=== PATIENT | female | born 1940 | race Caucasian/White ===

== ENCOUNTER 2019-12-28 07:51 | Inpatient (IN) | payer MEDICARE, BC ==
[~2019-12-28 07:51] MED LIST: Bisacodyl 5 MG Tab PO PRN; Ketorolac 15 MG/ML SDV IVPUSH PRN; Lactated Ringers 1,000 ML IV SCH; Lidocaine 1%/Sod Bicarbonate in NS 8.4% 1 ML Syringe IDERM PRN; Magnesium Hydroxide 400 MG/5 ML Susp 30 ML Cup PO PRN; Morphine 2 MG/ML Syringe IVPUSH PRN; Naloxone 0.4 MG/ML SDV IVPUSH PRN; Ondansetron 4 MG/2 ML SDV IVPUSH PRN; Sennosides 8.6 MG Tab PO PRN; Sodium Chloride 0.9% 10 ML Syringe FLUSH PRN
--- NOTE | 2019-12-28 08:09 | PCM.CONS ---
H&P History of Present Illness - General Date of Service: 12/28/19 Admit Problem/Dx: Admission Diagnosis/Problem Admission Diagnosis/Problem Osteoarthritis of hip Source of Information: Patient, Old Records, Provider, RN, RN Notes Reviewed History Limitations: Reports: No Limitations - History of Present Illness Initial Comments - Free Text/Narative: Jihan Caldwell is a 79 yo female patient of Dr. Yousif who is post-operative day 0 of right ASHLYN. Hospital medicine was consulted for post-operative medical care of the following listed medical conditions. At this time she is resting comfortably in bed. Pain is controlled. She denies any chest pain, shortness of breath, palpitations, nausea, or vomiting. She carries a history of: Hypothyroidism, Recurrent UTI, HLD, Osteopenia, HTN, Cardiac murmur, Osteopenia , Balance and gait difficulty. She was never a smoker. She is a full code. Her primary care provider is Dr. Briones. RIGHT HIP Pain Score (Numeric/FACES): 0 - Related Data Allergies/Adverse Reactions: Allergies Allergy/AdvReac Type Severity Reaction Status Date / Time CRISTHIAN Inhibitors Allergy Cannot Verified 12/28/19 13:37 Remember amoxicillin Allergy Anaphylactic Verified 12/28/19 13:37 Shock niacin Allergy Cannot Verified 12/28/19 13:37 [From Niaspan Remember Extended-Release] Penicillins Allergy Rash Verified 12/28/19 13:37 Quinolones Allergy Cannot Verified 12/28/19 13:37 Remember Sulfa (Sulfonamide Allergy Cannot Verified 12/28/19 13:37 Antibiotics) Remember Home Medications: Home Meds Aspirin [Halfprin] 81 mg PO DAILY 12/27/19 [History] Cholecalciferol (Vitamin D3) [Vitamin D3] 5,000 unit PO DAILY 12/27/19 [History] Fish Oil/Borage/Flax/Om3,6,9 1 [[place] 3-6-9 1,200 mg Softgel] 1,200 mg PO DAILY 12/27/19 [History] Levothyroxine [Synthroid] 50 mcg PO DAILY 12/27/19 [History] Losartan [Cozaar] 50 mg PO DAILY 12/27/19 [History] Multivitamin [Multi-Vitamin Daily] 1 tab PO DAILY 12/27/19 [History] Ubidecarenone [Coq-10] 100 mg PO DAILY 12/27/19 [History] amLODIPine [Norvasc] 5 mg PO DAILY 12/27/19 [History] Past Medical History HEENT History: Reports: Other (See Below) Other HEENT History: poor dentition Cardiovascular History: Reports: Heart Murmur, High Cholesterol, Hypertension Respiratory History: Reports: None Genitourinary History: Reports: UTI, Recurrent [employer] History: Reports: None Musculoskeletal History: Reports: Other (See Below) Other Musculoskeletal History: difficultly with balance and gait, right hip degenerative joint disease Neurological History: Reports: None Psychiatric History: Reports: None Endocrine/Metabolic History: Reports: Hypothyroidism, Osteopenia Hematologic History: Reports: None Immunologic History: Reports: None Oncologic (Cancer) History: Reports: None Dermatologic History: Reports: None - Past Surgical History Head Surgeries/Procedures: Reports: None HEENT Surgical History: Reports: Cataract Surgery, Oral Surgery, Tonsillectomy Cardiovascular Surgical History: Reports: None Respiratory Surgical History: Reports: None GI Surgical History: Reports: Colonoscopy Female Surgical History: Reports: Breast Reduction Male Surgical History: Reports: None Endocrine Surgical History: Reports: None Neurological Surgical History: Reports: None Oncologic Surgical History: Reports: None Dermatological Surgical History: Reports: None Social & Family History - Tobacco Use Smoking Status *Q: Never Smoker Second Hand Smoke Exposure: No - Caffeine Use Caffeine Use: Reports: Coffee - Recreational Drug Use Recreational Drug Use: No H&P Review of Systems - Review of Systems: Review Of Systems: See Below General: Reports: No Symptoms. Denies: Fever, Chills HEENT: Reports: No Symptoms. Denies: Headaches, Sore Throat Pulmonary: Reports: No Symptoms. Denies: Shortness of Breath, Wheezing, Pleuritic Chest Pain, Cough, Sputum Cardiovascular: Reports: No Symptoms. Denies: Chest Pain, Palpitations, Dyspnea on Exertion Gastrointestinal: Reports: No Symptoms. Denies: Abdominal Pain, Constipation, Diarrhea, Nausea, Vomiting Genitourinary: Reports: No Symptoms. Denies: Pain Musculoskeletal: Reports: Leg Pain Skin: Reports: No Symptoms. Denies: Cyanosis Psychiatric: Reports: No Symptoms. Denies: Confusion Neurological: Reports: Difficulty Walking, Gait Disturbance Hematologic/Lymphatic: Reports: No Symptoms Immunologic: Reports: No Symptoms Exam - Exam Exam: See Below - Exam Quality Assessment: DVT Prophylaxis. No: Supplemental Oxygen, Urinary Catheter General: Alert, Oriented, Cooperative. No: Mild Distress HEENT: Conjunctiva Clear, EACs Clear, Mucosa Moist & [place], Nares Patent, Posterior Pharynx Clear, PERRLA Neck: Supple, Trachea Midline Lungs: Clear to Auscultation, Normal Respiratory Effort Cardiovascular: Regular Rate, Regular Rhythm GI/Abdominal Exam: Normal Bowel Sounds, Soft, Non-Tender, No Distention (Female) Exam: Deferred Rectal (Female) Exam: Deferred Extremities: Normal Capillary Refill, Leg Pain, Limited Range of Motion, Other ( Bandage in place on right leg. Bandage is dry and intact. Cooling pack in place. ) Peripheral Pulses: 2+: Radial (L), Radial (R), Dorsalis Pedis (L), Dorsalis Pedis (R) Skin: Warm, Dry, Intact Neurological: Cranial Nerves Intact (grossly ) Neuro Extensive - Mental Status: Alert, Oriented x3 Consult PN Assessment/Plan POD#: 0 (1) S/P total hip arthroplasty SNOMED Code(s): 218340893030, 734638760661 Code(s): Z96.649 - PRESENCE OF UNSPECIFIED ARTIFICIAL HIP JOINT Priority: High Current Visit: Yes Qualifiers: Laterality: right Qualified Code(s): Z96.641 - Presence of right artificial hip joint (2) Osteoarthritis SNOMED Code(s): 148999406 Code(s): M19.90 - UNSPECIFIED OSTEOARTHRITIS, UNSPECIFIED SITE Priority: High Current Visit: Yes Qualifiers: Osteoarthritis location: hip Osteoarthritis type: primary Laterality: right Qualified Code(s): M16.11 - Unilateral primary osteoarthritis, right hip (3) Hypothyroidism SNOMED Code(s): 34366360 Code(s): E03.9 - HYPOTHYROIDISM, UNSPECIFIED Priority: Low Current Visit : No Qualifiers: Hypothyroidism type: unspecified Qualified Code(s): E03.9 - Hypothyroidism , unspecified (4) Recurrent UTI SNOMED Code(s): 421168746 Code(s): N39.0 - URINARY TRACT INFECTION, SITE NOT SPECIFIED Priority: Low Current Visit: No (5) HLD (hyperlipidemia) SNOMED Code(s): 98349786 Code(s): E78.5 - HYPERLIPIDEMIA, UNSPECIFIED Priority: Low Current Visit : No Qualifiers: Hyperlipidemia type: unspecified Qualified Code(s): E78.5 - Hyperlipidemia , unspecified (6) Osteopenia SNOMED Code(s): 555480346 Code(s): M85.80 - OTH DISRD OF BONE DENSITY AND STRUCTURE, UNSPECIFIED SITE Priority: Medium Current Visit: No Qualifiers: Osteopenia location: unspecified Qualified Code(s): M85.80 - Other specified disorders of bone density and structure, unspecified site (7) HTN (hypertension) SNOMED Code(s): 15330282 Code(s): I10 - ESSENTIAL (PRIMARY) HYPERTENSION Priority: Medium Current Visit: No Qualifiers: Hypertension type: unspecified Qualified Code(s): I10 - Essential (primary ) hypertension (8) Cardiac murmur SNOMED Code(s): 55045946 Code(s): R01.1 - CARDIAC MURMUR, UNSPECIFIED Priority: Low Current Visit : No (9) Balance problem SNOMED Code(s): 998455485 Code(s): R26.89 - OTHER ABNORMALITIES OF GAIT AND MOBILITY Priority: Medium Current Visit: No (10) Gait difficulty SNOMED Code(s): 22141414 Code(s): R26.9 - UNSPECIFIED ABNORMALITIES OF GAIT AND MOBILITY Priority: Medium Current Visit: No Problem List Initiated/Reviewed/Updated: Yes Plan: I/P: Acute: S/P right total hip arthroplasty - post-operative day 0 -DVT prophylaxis and pain management per primary care team -PT/OT -IS/RT -Monitor oxygen saturation -Titrate oxygen as needed -Home medications reviewed -Vital signs stable -Monitor labs -Pre-operative Hgb was 14.4 -Pre-operative GFR was 102 Osteoarthritis of right hip -Pain management per primary care team Chronic: Hypothyroidism Recurrent UTI HLD Osteopenia HTN Cardiac murmur Osteopenia Balance and gait difficulty Plan: CM for discharge planning GI prophylaxis Home medications as indicated Other orders as listed above Routine AM labs She is a full code. Her PCP is Dr. Briones Thank you for allowing us to participate in the care of this patient!! Requesting Provider: Dr. Yousif Date Consult Requested: 12/28/19 Patient History Reviewed: Yes Admission H&P Reviewed: Yes Notified Requestor: Yes
[2019-12-28] MEDS ORDERED: Bupivacaine 0.25% 10 ML SDV ONE (08:13)
[2019-12-28] MEDS ORDERED: ceFAZolin 1 GM Vial ONE ×2 (08:13→09:24)
[2019-12-28] MEDS ORDERED: Iodine/Sodium Iodide 2% Tincture 30 ML Bottle ONE (08:13)
[2019-12-28] MEDS ORDERED: Vancomycin 1 GM SDV ONE (08:13)
--- NOTE | 2019-12-28 09:09 | PCM.PREANE ---
Preanesthetic Assessment - Anesthesia/Transfusion/Family Hx Anesthesia History: Prior Anesthesia Reaction Other Type of Anesthesia Reaction Comment: panic attack Transfusion History: No Prior Transfusion(s) - Review of Systems General: No Symptoms Pulmonary: No Symptoms Cardiovascular: No Symptoms Gastrointestinal: No Symptoms Neurological: No Symptoms Other: Reports: None - Physical Assessment NPO Status Date: 12/27/19 NPO Status Time: 23:00 ASA Class: 3 Mental Status: Alert & Oriented x3 (poor historian, memory deterioration) Airway Class: Mallampati = 2 Dentition: Reports: Missing Tooth/Teeth, Caries (very poor dentition) Thyro-Mental Finger Breadths: 3 Mouth Opening Finger Breadths: 3 ROM/Head Extension: Full Lungs: Clear to Auscultation, Normal Respiratory Effort Cardiovascular: Regular Rate, Regular Rhythm - Lab Values: Laboratory Last Values MRSA (PCR) Negative 12/14/19 13:18 - Allergies Allergies/Adverse Reactions: Allergies Allergy/AdvReac Type Severity Reaction Status Date / Time CRISTHIAN Inhibitors Allergy Cannot Verified 12/27/19 12:53 Remember amoxicillin Allergy Anaphylactic Verified 12/27/19 12:53 Shock niacin Allergy Cannot Verified 12/27/19 12:53 [From Niaspan Remember Extended-Release] Penicillins Allergy Rash Verified 12/27/19 12:53 Quinolones Allergy Cannot Verified 12/27/19 12:53 Remember Sulfa (Sulfonamide Allergy Cannot Verified 12/27/19 12:53 Antibiotics) Remember - Acknowledgements Anesthesia Type Planned: Spinal Pt an Appropriate Candidate for the Planned Anesthesia: Yes Alternatives and Risks of Anesthesia Discussed w Pt/Guardian: Yes Pt/Guardian Understands and Agrees with Anesthesia Plan: Yes PreAnesthesia Questionnaire HEENT History: Reports: Other (See Below) Other HEENT History: poor dentition Cardiovascular History: Reports: Heart Murmur, High Cholesterol, Hypertension Genitourinary History: Reports: UTI, Recurrent Musculoskeletal History: Reports: Other (See Below) Other Musculoskeletal History: difficultly with balance and gait, right hip degenerative joint disease Endocrine/Metabolic History: Reports: Hypothyroidism, Osteopenia Immunologic History: Reports: None Oncologic (Cancer) History: Reports: None Dermatologic History: Reports: None - Past Surgical History Head Surgeries/Procedures: Reports: None HEENT Surgical History: Reports: Cataract Surgery, Oral Surgery, Tonsillectomy Cardiovascular Surgical History: Reports: None Respiratory Surgical History: Reports: None GI Surgical History: Reports: Colonoscopy Female Surgical History: Reports: Breast Reduction Male Surgical History: Reports: None Endocrine Surgical History: Reports: None Neurological Surgical History: Reports: None Oncologic Surgical History: Reports: None Dermatological Surgical History: Reports: None - SUBSTANCE USE Smoking Status *Q: Never Smoker Tobacco Use Within Last Twelve Months: No Second Hand Smoke Exposure: No Recreational Drug Use History: No - HOME MEDS Home Medications: Home Meds Aspirin [Halfprin] 81 mg PO DAILY 12/27/19 [History] Cholecalciferol (Vitamin D3) [Vitamin D3] 5,000 unit PO DAILY 12/27/19 [History] Fish Oil/Borage/Flax/Om3,6,9 1 [[place] 3-6-9 1,200 mg Softgel] 1,200 mg PO DAILY 12/27/19 [History] Levothyroxine [Synthroid] 50 mcg PO DAILY 12/27/19 [History] Losartan [Cozaar] 50 mg PO DAILY 12/27/19 [History] Multivitamin [Multi-Vitamin Daily] 1 tab PO DAILY 12/27/19 [History] Ubidecarenone [Coq-10] 100 mg PO DAILY 12/27/19 [History] amLODIPine [Norvasc] 5 mg PO DAILY 12/27/19 [History] - CURRENT (IN HOUSE) MEDS Current Meds: Current Medications Hydrocodone Bitart/Acetaminophen ([place] 325-5 Mg) 1 - 2 tab PO Q6H PRN PRN Reason: Pain Aspirin (Ecotrin) 325 mg PO BID LUI Bisacodyl (Dulcolax) 5 mg PO DAILY PRN PRN Reason: Constipation Morphine Sulfate 8 mg/Epinephrine HCl 0.3 mg/Cefuroxime Sodium 750 mg/Ketorolac Tromethamine 30 mg/Sodium Chloride 7.9 ml 0 mg .XX ASDIRECTED PRN PRN Reason: Pain Docusate Sodium (Colace) 100 mg PO BID LUI Famotidine (Pepcid) 20 mg PO Q12H LUI Lactated Ringer's (Ringers, Lactated) 1,000 mls @ 125 mls/hr IV ASDIRECTED LUI Stop: 12/28/19 23:00 Cefazolin Sodium/Dextrose 2 gm (/ Premix) 50 mls @ 100 mls/hr IV Q8H LUI Stop: 12/28/19 23:14 Ketorolac Tromethamine (Toradol) 15 mg IVPUSH Q6H PRN PRN Reason: Pain Lidocaine/Sodium Bicarbonate (Buffered Lidocaine 1% In Ns 8.4%) 0.25 ml IDERM ONETIME PRN PRN Reason: Prior to IV Start Stop: 12/28/19 18:00 Magnesium Hydroxide (Milk Of Magnesia) 30 ml PO BID PRN PRN Reason: Constipation Morphine Sulfate (Morphine) 2 mg IVPUSH Q2H PRN PRN Reason: Breakthrough Pain Naloxone HCl (Narcan) 0.1 mg IVPUSH Q5M PRN PRN Reason: Oversedation Ondansetron HCl (Zofran) 4 mg IVPUSH Q6H PRN PRN Reason: Nausea/Vomiting Senna (Senna) 8.6 mg PO BID PRN PRN Reason: Constipation Sodium Chloride (Saline Flush) 10 ml FLUSH ASDIRECTED PRN PRN Reason: Keep Vein Open Stop: 12/28/19 18:00 Discontinued Medications Bupivacaine HCl (Sensorcaine-Mpf 0.25%) Confirm Administered Dose 30 ml .ROUTE .STK-MED ONE Stop: 12/28/19 08:14 Cefazolin Sodium (Ancef) Confirm Administered Dose 2 gm .ROUTE .STK-MED ONE Stop: 12/28/19 08:14 Iodine (Iodine 2% Mild Tincture) Confirm Administered Dose 30 ml .ROUTE .STK- MED ONE Stop: 12/28/19 08:14 Tranexamic Acid (Cyklokapron) Confirm Administered Dose 1,000 mg .ROUTE .STK- MED ONE Stop: 12/28/19 08:14 Vancomycin HCl (Vancomycin) Confirm Administered Dose 1 gm .ROUTE .STK-MED ONE Stop: 12/28/19 08:14
[2019-12-28] MEDS ORDERED: fentaNYL 100 MCG/2 ML SDV ONE (09:24)
[2019-12-28] MEDS ORDERED: Propofol 200 MG/20 ML SDV ONE (09:28)
[2019-12-28] MEDS ORDERED: Midazolam 1 MG/ML 2 ML SDV ONE (09:29)
[2019-12-28] MEDS ORDERED: Morphine 8 MG, EPINEPHrine 0.3 MG, Cefuroxime 750 MG, Ketorolac 30 MG, Sodium Chloride ... PRN ×5 (09:45)
[2019-12-28] MEDS ORDERED: Lactated Ringers 1,000 ML ONE (10:29)
[2019-12-28] MEDS ORDERED: Ondansetron 4 MG/2 ML SDV IVPUSH PRN (10:52)
[2019-12-28] MEDS ORDERED: EPINEPHrine 1 MG/ML SDV ONE (11:33)
--- NOTE | 2019-12-28 11:50 | PCM.POSTAN ---
POST ANESTHESIA ASSESSMENT - MENTAL STATUS Mental Status: Alert, Oriented - VITAL SIGNS Vital Signs: Last Vital Signs Temp 97.7 F 12/28/19 11:38 Pulse 87 12/28/19 11:38 Resp 20 12/28/19 11:38 BP 129/52 L 12/28/19 11:38 Pulse Ox 98 12/28/19 11:38 - RESPIRATORY Respiratory Status: Respiratory Rate WNL, Airway Patent, O2 Saturation Stable, Supplemental Oxygen - CARDIOVASCULAR CV Status: Pulse Rate WNL, Blood Pressure Stable - GASTROINTESTINAL GI Status: No Symptoms - PAIN Pain Score: 0 (post SAB) - POST OP HYDRATION Hydration Status: Adequate & Stable
--- NOTE | 2019-12-28 12:58 | CR ---
Pelvis and right hip: AP view of the pelvis was obtained as well as crosstable lateral view of the right hip. Right hip prosthesis is seen. Components are aligned. Soft tissue air is noted from the surgical procedure. Mild joint space narrowing is seen within the left hip. Bony structures are osteopenic. No acute bony abnormality is seen. Impression: 1. Recently placed right hip prosthesis. 2. Other findings as noted above. Diagnostic code #2 This report was dictated in MDT
[2019-12-28] MEDS: ceFAZolin 2 GM in Premix Bag 1 BAG IV SCH (17:00)
[2019-12-28] MEDS: Acetaminophen/HYDROcodone 325-5 MG Tab PO PRN (20:06)
[2019-12-28] MEDS: Docusate Sodium 100 MG Cap PO SCH (20:06)
[2019-12-28] MEDS ORDERED: Levothyroxine 50 MCG Tab PO SCH (21:00)
[2019-12-28] MEDS ORDERED: Famotidine 20 MG Tab PO SCH (21:00)
[2019-12-29] MEDS: Acetaminophen/HYDROcodone 325-5 MG Tab PO PRN (02:15)
[2019-12-29] MEDS: ceFAZolin 2 GM in Premix Bag 1 BAG IV SCH ×2 (02:16→08:45)
[2019-12-29] MEDS: Docusate Sodium 100 MG Cap PO SCH (08:44)
[2019-12-29] MEDS ORDERED: amLODIPine 5 MG Tab PO SCH (09:00)
[2019-12-29] MEDS ORDERED: Cholecalciferol (Vitamin D3) 5,000 UNIT Tab PO SCH (09:00)
[2019-12-29] MEDS ORDERED: Losartan 25 MG Tab PO SCH (09:00)
[2019-12-29] MEDS ORDERED: Aspirin 325 MG Tab.EC PO SCH (09:00)
[2019-12-29] MEDS ORDERED: Non-Formulary Medication 1 Each (Ubidecarenone 100 MG) PO SCH (09:00)
[2019-12-29] MEDS ORDERED: Multivitamins,Therapeutic Tab PO SCH (09:00)
--- NOTE | 2019-12-29 11:26 | PCM.CONSN ---
- General Info Date of Service: 12/29/19 Admission Dx/Problem (Free Text): Admission Diagnosis/Problem Admission Diagnosis/Problem Osteoarthritis of hip Functional Status: Reports: Pain Controlled, Tolerating Diet, Ambulating, Urinating, New Symptoms, Incentive Spirometry - Review of Systems General: Reports: No Symptoms. Denies: Chills HEENT: Reports: No Symptoms. Denies: Headaches, Sore Throat Pulmonary: Reports: No Symptoms. Denies: Shortness of Breath, Pleuritic Chest Pain, Cough, Sputum, Wheezing Cardiovascular: Reports: No Symptoms. Denies: Chest Pain, Palpitations, Dyspnea on Exertion Gastrointestinal: Reports: No Symptoms. Denies: Abdominal Pain, Constipation, Diarrhea, Nausea, Vomiting Genitourinary: Reports: No Symptoms. Denies: Pain Musculoskeletal: Reports: Leg Pain Skin: Reports: No Symptoms. Denies: Cyanosis Neurological: Reports: Difficulty Walking, Gait Disturbance. Denies: Confusion Psychiatric: Reports: No Symptoms - Patient Data Vitals - Most Recent: Last Vital Signs Temp 98.2 F 12/29/19 08:43 Pulse 92 12/29/19 08:43 Resp 18 12/29/19 08:43 BP 133/75 12/29/19 08:44 Pulse Ox 93 L 12/29/19 08:43 Weight - Most Recent: 139 lb 1.6 oz I&O - Last 24 Hours: Intake & Output 12/28/19 12/29/19 12/29/19 22:59 06:59 14:59 Intake Total 1160 630 180 Balance 1160 630 180 Lab Results Last 24 Hours: Laboratory Results - last 24 hr 12/29/19 12/29/19 Range/Units 05:30 05:30 WBC 7.34 (3.98-10.04) K/mm3 RBC 3.96 L (3.98-5.22) M/mm3 Hgb 11.9 (11.2-15.7) gm/dl Hct 36.7 (34.1-44.9) % MCV 92.7 (79.4-94.8) fl MCH 30.1 (25.6-32.2) pg MCHC 32.4 (32.2-35.5) g/dl RDW Std Deviation 45.2 (36.4-46.3) fL Plt Count 257 (182-369) K/mm3 MPV 9.1 L (9.4-12.3) fl Sodium 141 (136-145) mEq/L Potassium 3.8 (3.5-5.1) mEq/L Chloride 104 (98-107) mEq/L Carbon Dioxide 29 (21-32) mEq/L Anion Gap 11.8 (5-15) BUN 11 (7-18) mg/dL Creatinine 0.7 (0.55-1.02) mg/dL Est Cr Clr Drug Dosing 49.18 mL/min Estimated GFR (MDRD) > 60 (>60) mL/min BUN/Creatinine Ratio 15.7 (14-18) Glucose 115 (83-115) mg/dL Calcium 8.8 (8.5-10.1) mg/dL Total Bilirubin 0.6 (0.2-1.0) mg/dL AST 35 (15-37) U/L ALT 24 (14-59) U/L Alkaline Phosphatase 41 L (46-116) U/L Total Protein 6.1 L (6.4-8.2) g/dl Albumin 2.9 L (3.4-5.0) g/dl Globulin 3.2 gm/dL Albumin/Globulin Ratio 0.9 L (1-2) Med Orders - Current: Current Medications Hydrocodone Bitart/Acetaminophen ([place] 325-5 Mg) 1 - 2 tab PO Q6H PRN PRN Reason: Pain Last Admin: 12/29/19 02:15 Dose: 2 tab Amlodipine Besylate (Norvasc) 5 mg PO DAILY [facility] Last Admin: 12/29/19 08:44 Dose: 5 mg Aspirin (Ecotrin) 325 mg PO BID [facility] Last Admin: 12/29/19 08:44 Dose: 325 mg Bisacodyl (Dulcolax) 5 mg PO DAILY PRN PRN Reason: Constipation Cholecalciferol (Vitamin D3) 5,000 unit PO DAILY [facility] Last Admin: 12/29/19 08:44 Dose: 5,000 unit Docusate Sodium (Colace) 100 mg PO BID [facility] Last Admin: 12/29/19 08:44 Dose: 100 mg Famotidine (Pepcid) 20 mg PO BEDTIME [facility] Ketorolac Tromethamine (Toradol) 15 mg IVPUSH Q6H PRN PRN Reason: Pain Last Admin: 12/29/19 02:16 Dose: 15 mg Levothyroxine Sodium (Synthroid) 50 mcg PO BEDTIME [facility] Last Admin: 12/28/19 20:06 Dose: 50 mcg Losartan Potassium (Cozaar) 50 mg PO DAILY [facility] Last Admin: 12/29/19 08:44 Dose: 50 mg Magnesium Hydroxide (Milk Of Magnesia) 30 ml PO BID PRN PRN Reason: Constipation Morphine Sulfate (Morphine) 2 mg IVPUSH Q2H PRN PRN Reason: Breakthrough Pain Multivitamins (Thera) 1 each PO DAILY [facility] Last Admin: 12/29/19 08:44 Dose: 1 each Naloxone HCl (Narcan) 0.1 mg IVPUSH Q5M PRN PRN Reason: Oversedation Ondansetron HCl (Zofran) 4 mg IVPUSH Q6H PRN PRN Reason: Nausea/Vomiting Senna (Senna) 8.6 mg PO BID PRN PRN Reason: Constipation Discontinued Medications Bupivacaine HCl (Sensorcaine-Mpf 0.25%) Confirm Administered Dose 30 ml .ROUTE .STK-MED ONE Stop: 12/28/19 08:14 Last Admin: 12/28/19 11:10 Dose: 30 ml Cefazolin Sodium (Ancef) Confirm Administered Dose 2 gm .ROUTE .STK-MED ONE Stop: 12/28/19 08:14 Last Admin: 12/28/19 11:08 Dose: 2 gm Cefazolin Sodium (Ancef) Confirm Administered Dose 2 gm .ROUTE .STK-MED ONE Stop: 12/28/19 09:25 Morphine Sulfate 8 mg/Epinephrine HCl 0.3 mg/Cefuroxime Sodium 750 mg/Ketorolac Tromethamine 30 mg/Sodium Chloride 7.9 ml 0 mg .XX ASDIRECTED PRN PRN Reason: Pain Last Admin: 12/28/19 11:11 Dose: 788.3 mg Epinephrine HCl (Adrenalin) Confirm Administered Dose 1 mg .ROUTE .STK-MED ONE Stop: 12/28/19 11:34 Famotidine (Pepcid) 20 mg PO Q12H [facility] Last Admin: 12/28/19 20:06 Dose: 20 mg Fentanyl (Sublimaze) Confirm Administered Dose 100 mcg .ROUTE .STK-MED ONE Stop: 12/28/19 09:25 Lactated Ringer's (Ringers, Lactated) 1,000 mls @ 125 mls/hr IV ASDIRECTED [facility] Stop: 12/28/19 23:00 Last Admin: 12/28/19 08:34 Dose: 125 mls/hr Cefazolin Sodium/Dextrose 2 gm (/ Premix) 50 mls @ 100 mls/hr IV Q8H [facility] Stop: 12/29/19 09:59 Last Admin: 12/29/19 08:45 Dose: 100 mls/hr Lactated Ringer's (Ringers, Lactated) Confirm Administered Dose 1,000 mls @ as directed .ROUTE .STK-MED ONE Stop: 12/28/19 10:30 Iodine (Iodine 2% Mild Tincture) Confirm Administered Dose 30 ml .ROUTE .STK- MED ONE Stop: 12/28/19 08:14 Last Admin: 12/28/19 11:04 Dose: 18 ml Lidocaine/Sodium Bicarbonate (Buffered Lidocaine 1% In Ns 8.4%) 0.25 ml IDERM ONETIME PRN PRN Reason: Prior to IV Start Stop: 12/28/19 18:00 Midazolam HCl (Versed 1 Mg/Ml) Confirm Administered Dose 2 mg .ROUTE .STK-MED ONE Stop: 12/28/19 09:30 Miscellaneous Medication (Phenylephrine 1 Mg/10 Ml-Ns) Confirm Administered Dose 1 mg IV .STK-MED ONE Stop: 12/28/19 10:07 Miscellaneous Medication (Phenylephrine 1 Mg/10 Ml-Ns) Confirm Administered Dose 1 mg IV .STK-MED ONE Stop: 12/28/19 11:18 Non-Formulary Medication (Ubidecarenone) 100 mg PO DAILY [facility] Ondansetron HCl (Zofran) 4 mg IVPUSH ONETIME PRN PRN Reason: Nausea/Vomiting Stop: 12/28/19 13:00 Propofol (Diprivan 20 Ml) Confirm Administered Dose 200 mg .ROUTE .STK-MED ONE Stop: 12/28/19 09:29 Sodium Chloride (Saline Flush) 10 ml FLUSH ASDIRECTED PRN PRN Reason: Keep Vein Open Stop: 12/28/19 18:00 Tranexamic Acid (Cyklokapron) Confirm Administered Dose 1,000 mg .ROUTE .STK- MED ONE Stop: 12/28/19 08:14 Last Admin: 12/28/19 11:12 Dose: 1,000 mg Vancomycin HCl (Vancomycin) Confirm Administered Dose 1 gm .ROUTE .STK-MED ONE Stop: 12/28/19 08:14 Last Admin: 12/28/19 11:12 Dose: 1 gm - Exam Quality Assessment: DVT Prophylaxis. No: Supplemental Oxygen, Urine Catheter General: Alert, Oriented, Cooperative, No Acute Distress HEENT: Pupils Equal, Pupils Reactive, Mucous Membr. Moist/[place] Neck: Supple, Trachea Midline Lungs: Clear to Auscultation, Normal Respiratory Effort Cardiovascular: Regular Rate, Regular Rhythm GI/Abdominal Exam: Normal Bowel Sounds, Soft, Non-Tender, No Organomegaly, No Distention (Female) Exam: Deferred Back Exam: Normal Inspection, Full Range of Motion Extremities: Normal Capillary Refill, Leg Pain, Limited Range of Motion, Other ( Bandage in place on right leg. Bandage is dry and intact. ) Peripheral Pulses: 2+: Radial (L), Radial (R), Dorsalis Pedis (L), Dorsalis Pedis (R) Skin: Warm, Dry, Intact Wound/Incisions: Dressing Dry and Intact Neurological: No New Focal Deficit Psy/Mental Status: Alert, Normal Affect, Normal Mood Sepsis Event Note - Evaluation Sepsis Screening Result: No Definite Risk - Focused Exam Vital Signs: Vital Signs Temp Pulse Resp BP BP Pulse Ox 12/29/19 08:44 133/75 12/29/19 08:43 98.2 F 92 18 133/75 93 L 12/29/19 03:15 98.4 F 67 18 119/59 L 96 12/29/19 02:27 98.1 F 77 18 97 12/29/19 00:00 128/46 L Date Exam was Performed: 12/29/19 Time Exam was Performed: 11:49 Consult PN Assessment/Plan POD#: 1 (1) S/P total hip arthroplasty SNOMED Code(s): 299414290397, 807852347498 Code(s): Z96.649 - PRESENCE OF UNSPECIFIED ARTIFICIAL HIP JOINT Priority: High Current Visit: Yes Qualifiers: Laterality: right Qualified Code(s): Z96.641 - Presence of right artificial hip joint (2) Osteoarthritis SNOMED Code(s): 443873481 Code(s): M19.90 - UNSPECIFIED OSTEOARTHRITIS, UNSPECIFIED SITE Priority: High Current Visit: Yes Qualifiers: Osteoarthritis location: hip Osteoarthritis type: primary Laterality: right Qualified Code(s): M16.11 - Unilateral primary osteoarthritis, right hip (3) Hypothyroidism SNOMED Code(s): 26074328 Code(s): E03.9 - HYPOTHYROIDISM, UNSPECIFIED Priority: Low Current Visit : No Qualifiers: Hypothyroidism type: unspecified Qualified Code(s): E03.9 - Hypothyroidism , unspecified (4) Recurrent UTI SNOMED Code(s): 003743559 Code(s): N39.0 - URINARY TRACT INFECTION, SITE NOT SPECIFIED Priority: Low Current Visit: No (5) HLD (hyperlipidemia) SNOMED Code(s): 45715074 Code(s): E78.5 - HYPERLIPIDEMIA, UNSPECIFIED Priority: Low Current Visit : No Qualifiers: Hyperlipidemia type: unspecified Qualified Code(s): E78.5 - Hyperlipidemia , unspecified (6) Osteopenia SNOMED Code(s): 556893023 Code(s): M85.80 - OTH DISRD OF BONE DENSITY AND STRUCTURE, UNSPECIFIED SITE Priority: Medium Current Visit: No Qualifiers: Osteopenia location: unspecified Qualified Code(s): M85.80 - Other specified disorders of bone density and structure, unspecified site (7) HTN (hypertension) SNOMED Code(s): 66538205 Code(s): I10 - ESSENTIAL (PRIMARY) HYPERTENSION Priority: Medium Current Visit: No Qualifiers: Hypertension type: unspecified Qualified Code(s): I10 - Essential (primary ) hypertension (8) Cardiac murmur SNOMED Code(s): 05179127 Code(s): R01.1 - CARDIAC MURMUR, UNSPECIFIED Priority: Low Current Visit : No (9) Balance problem SNOMED Code(s): 593315841 Code(s): R26.89 - OTHER ABNORMALITIES OF GAIT AND MOBILITY Priority: Medium Current Visit: No (10) Gait difficulty SNOMED Code(s): 55019706 Code(s): R26.9 - UNSPECIFIED ABNORMALITIES OF GAIT AND MOBILITY Priority: Medium Current Visit: No Problem List Initiated/Reviewed/Updated: Yes Plan: I/P: Acute: S/P right total hip arthroplasty - post-operative day 1 -DVT prophylaxis and pain management per primary care team -PT/OT -IS/RT -Monitor oxygen saturation -Titrate oxygen as needed -Home medications reviewed -Vital signs stable -Monitor labs -Pre-operative Hgb was 14.4; Now 11.9 -Pre-operative GFR was 102; Now >60 Osteoarthritis of right hip -Pain management per primary care team Chronic: Hypothyroidism Recurrent UTI HLD Osteopenia HTN Cardiac murmur Osteopenia Balance and gait difficulty Plan: CM for discharge planning GI prophylaxis Home medications as indicated Other orders as listed above Routine AM labs She is a full code. Her PCP is Dr. Briones From a hospitalist standpoint Jihan is doing well. She has been up ambulating and working with therapies. She is off of oxygen and has urinated. Labs and vital signs remain stable. Her pain is controlled and she has been utilizing her IS. She is cleared for discharge pending primary team and PT/OT agreement. Thank you for allowing us to participate in the care of this patient!!
--- NOTE | 2019-12-29 12:27 | PCM.SURGPN ---
- General Info Date of Service: 12/29/19 POD#: 1 Functional Status: Reports: Pain Controlled, Tolerating Diet, Ambulating, Urinating, Incentive Spirometry, Other (The pt states she is doing very well. She feels prepared for discharge to home with the assistance of her family members.) - Patient Data Vitals - Most Recent: Last Vital Signs Temp 98.2 F 12/29/19 08:43 Pulse 92 12/29/19 08:43 Resp 18 12/29/19 08:43 BP 133/75 12/29/19 08:44 Pulse Ox 93 L 12/29/19 08:43 Weight - Most Recent: 139 lb 1.6 oz I&O - Last 24 Hours: Intake & Output 12/28/19 12/29/19 12/29/19 22:59 06:59 14:59 Intake Total 1160 630 180 Balance 1160 630 180 Lab Results Last 24 Hrs: Laboratory Results - last 24 hr 12/29/19 12/29/19 Range/Units 05:30 05:30 WBC 7.34 (3.98-10.04) K/mm3 RBC 3.96 L (3.98-5.22) M/mm3 Hgb 11.9 (11.2-15.7) gm/dl Hct 36.7 (34.1-44.9) % MCV 92.7 (79.4-94.8) fl MCH 30.1 (25.6-32.2) pg MCHC 32.4 (32.2-35.5) g/dl RDW Std Deviation 45.2 (36.4-46.3) fL Plt Count 257 (182-369) K/mm3 MPV 9.1 L (9.4-12.3) fl Sodium 141 (136-145) mEq/L Potassium 3.8 (3.5-5.1) mEq/L Chloride 104 (98-107) mEq/L Carbon Dioxide 29 (21-32) mEq/L Anion Gap 11.8 (5-15) BUN 11 (7-18) mg/dL Creatinine 0.7 (0.55-1.02) mg/dL Est Cr Clr Drug Dosing 49.18 mL/min Estimated GFR (MDRD) > 60 (>60) mL/min BUN/Creatinine Ratio 15.7 (14-18) Glucose 115 (83-115) mg/dL Calcium 8.8 (8.5-10.1) mg/dL Total Bilirubin 0.6 (0.2-1.0) mg/dL AST 35 (15-37) U/L ALT 24 (14-59) U/L Alkaline Phosphatase 41 L (46-116) U/L Total Protein 6.1 L (6.4-8.2) g/dl Albumin 2.9 L (3.4-5.0) g/dl Globulin 3.2 gm/dL Albumin/Globulin Ratio 0.9 L (1-2) Med Orders - Current: Current Medications Hydrocodone Bitart/Acetaminophen ([place] 325-5 Mg) 1 - 2 tab PO Q6H PRN PRN Reason: Pain Last Admin: 12/29/19 02:15 Dose: 2 tab Amlodipine Besylate (Norvasc) 5 mg PO DAILY [facility] Last Admin: 12/29/19 08:44 Dose: 5 mg Aspirin (Ecotrin) 325 mg PO BID [facility] Last Admin: 12/29/19 08:44 Dose: 325 mg Bisacodyl (Dulcolax) 5 mg PO DAILY PRN PRN Reason: Constipation Cholecalciferol (Vitamin D3) 5,000 unit PO DAILY [facility] Last Admin: 12/29/19 08:44 Dose: 5,000 unit Docusate Sodium (Colace) 100 mg PO BID [facility] Last Admin: 12/29/19 08:44 Dose: 100 mg Famotidine (Pepcid) 20 mg PO BEDTIME [facility] Ketorolac Tromethamine (Toradol) 15 mg IVPUSH Q6H PRN PRN Reason: Pain Last Admin: 12/29/19 02:16 Dose: 15 mg Levothyroxine Sodium (Synthroid) 50 mcg PO BEDTIME [facility] Last Admin: 12/28/19 20:06 Dose: 50 mcg Losartan Potassium (Cozaar) 50 mg PO DAILY [facility] Last Admin: 12/29/19 08:44 Dose: 50 mg Magnesium Hydroxide (Milk Of Magnesia) 30 ml PO BID PRN PRN Reason: Constipation Morphine Sulfate (Morphine) 2 mg IVPUSH Q2H PRN PRN Reason: Breakthrough Pain Multivitamins (Thera) 1 each PO DAILY [facility] Last Admin: 12/29/19 08:44 Dose: 1 each Naloxone HCl (Narcan) 0.1 mg IVPUSH Q5M PRN PRN Reason: Oversedation Ondansetron HCl (Zofran) 4 mg IVPUSH Q6H PRN PRN Reason: Nausea/Vomiting Senna (Senna) 8.6 mg PO BID PRN PRN Reason: Constipation Discontinued Medications Bupivacaine HCl (Sensorcaine-Mpf 0.25%) Confirm Administered Dose 30 ml .ROUTE .STK-MED ONE Stop: 12/28/19 08:14 Last Admin: 12/28/19 11:10 Dose: 30 ml Cefazolin Sodium (Ancef) Confirm Administered Dose 2 gm .ROUTE .STK-MED ONE Stop: 12/28/19 08:14 Last Admin: 12/28/19 11:08 Dose: 2 gm Cefazolin Sodium (Ancef) Confirm Administered Dose 2 gm .ROUTE .STK-MED ONE Stop: 12/28/19 09:25 Morphine Sulfate 8 mg/Epinephrine HCl 0.3 mg/Cefuroxime Sodium 750 mg/Ketorolac Tromethamine 30 mg/Sodium Chloride 7.9 ml 0 mg .XX ASDIRECTED PRN PRN Reason: Pain Last Admin: 12/28/19 11:11 Dose: 788.3 mg Epinephrine HCl (Adrenalin) Confirm Administered Dose 1 mg .ROUTE .STK-MED ONE Stop: 12/28/19 11:34 Famotidine (Pepcid) 20 mg PO Q12H [facility] Last Admin: 12/28/19 20:06 Dose: 20 mg Fentanyl (Sublimaze) Confirm Administered Dose 100 mcg .ROUTE .STK-MED ONE Stop: 12/28/19 09:25 Lactated Ringer's (Ringers, Lactated) 1,000 mls @ 125 mls/hr IV ASDIRECTED [facility] Stop: 12/28/19 23:00 Last Admin: 12/28/19 08:34 Dose: 125 mls/hr Cefazolin Sodium/Dextrose 2 gm (/ Premix) 50 mls @ 100 mls/hr IV Q8H [facility] Stop: 12/29/19 09:59 Last Admin: 12/29/19 08:45 Dose: 100 mls/hr Lactated Ringer's (Ringers, Lactated) Confirm Administered Dose 1,000 mls @ as directed .ROUTE .STK-MED ONE Stop: 12/28/19 10:30 Iodine (Iodine 2% Mild Tincture) Confirm Administered Dose 30 ml .ROUTE .STK- MED ONE Stop: 12/28/19 08:14 Last Admin: 12/28/19 11:04 Dose: 18 ml Lidocaine/Sodium Bicarbonate (Buffered Lidocaine 1% In Ns 8.4%) 0.25 ml IDERM ONETIME PRN PRN Reason: Prior to IV Start Stop: 12/28/19 18:00 Midazolam HCl (Versed 1 Mg/Ml) Confirm Administered Dose 2 mg .ROUTE .STK-MED ONE Stop: 12/28/19 09:30 Miscellaneous Medication (Phenylephrine 1 Mg/10 Ml-Ns) Confirm Administered Dose 1 mg IV .STK-MED ONE Stop: 12/28/19 10:07 Miscellaneous Medication (Phenylephrine 1 Mg/10 Ml-Ns) Confirm Administered Dose 1 mg IV .STK-MED ONE Stop: 12/28/19 11:18 Non-Formulary Medication (Ubidecarenone) 100 mg PO DAILY [facility] Ondansetron HCl (Zofran) 4 mg IVPUSH ONETIME PRN PRN Reason: Nausea/Vomiting Stop: 12/28/19 13:00 Propofol (Diprivan 20 Ml) Confirm Administered Dose 200 mg .ROUTE .STK-MED ONE Stop: 12/28/19 09:29 Sodium Chloride (Saline Flush) 10 ml FLUSH ASDIRECTED PRN PRN Reason: Keep Vein Open Stop: 12/28/19 18:00 Tranexamic Acid (Cyklokapron) Confirm Administered Dose 1,000 mg .ROUTE .STK- MED ONE Stop: 12/28/19 08:14 Last Admin: 12/28/19 11:12 Dose: 1,000 mg Vancomycin HCl (Vancomycin) Confirm Administered Dose 1 gm .ROUTE .STK-MED ONE Stop: 12/28/19 08:14 Last Admin: 12/28/19 11:12 Dose: 1 gm - Exam Wound/Incisions: Dressing Dry and Intact General: Alert, Cooperative, No Acute Distress Lungs: Normal Respiratory Effort Extremities: Other (NVS intact for BLE. Kal's negative. Right thigh soft.) Sepsis Event Note - Evaluation Sepsis Screening Result: No Definite Risk - Focused Exam Vital Signs: Vital Signs Temp Pulse Resp BP Pulse Ox 12/29/19 08:44 133/75 12/29/19 08:43 98.2 F 92 18 133/75 93 L 12/29/19 03:15 98.4 F 67 18 119/59 L 96 12/29/19 02:27 98.1 F 77 18 97 Date Exam was Performed: 12/29/19 Time Exam was Performed: 12:25 - Problem List Review Problem List Initiated/Reviewed/Updated: Yes - My Orders Last 24 Hours: Active Orders 24 hr Category Date Time Status Ready for Discharge [RC] PER UNIT ROUTINE Care 12/29/19 07:16 Active Aspirin [Ecotrin] Med 12/29/19 09:00 Active 325 mg PO BID Cholecalciferol (Vitamin D3) [Vitamin D3] Med 12/29/19 09:00 Active 5,000 unit PO DAILY Docusate Sodium [Colace] Med 12/28/19 21:00 Active 100 mg PO BID Famotidine [Pepcid] Med 12/29/19 21:00 Active 20 mg PO BEDTIME Levothyroxine [Synthroid] Med 12/28/19 21:00 Active 50 mcg PO BEDTIME Losartan [Cozaar] Med 12/29/19 09:00 Active 50 mg PO DAILY Multivitamins,Therapeutic [Thera] Med 12/29/19 09:00 Active 1 each PO DAILY amLODIPine [Norvasc] Med 12/29/19 09:00 Active 5 mg PO DAILY Medication Orders Hydrocodone Bitart/Acetaminophen ([place] 325-5 Mg) 1 - 2 tab PO Q6H PRN PRN Reason: Pain Last Admin: 12/29/19 02:15 Dose: 2 tab Admin: 12/28/19 20:06 Dose: 2 tab Amlodipine Besylate (Norvasc) 5 mg PO DAILY [facility] Last Admin: 12/29/19 08:44 Dose: 5 mg Aspirin (Ecotrin) 325 mg PO BID [facility] Last Admin: 12/29/19 08:44 Dose: 325 mg Bisacodyl (Dulcolax) 5 mg PO DAILY PRN PRN Reason: Constipation Cholecalciferol (Vitamin D3) 5,000 unit PO DAILY [facility] Last Admin: 12/29/19 08:44 Dose: 5,000 unit Docusate Sodium (Colace) 100 mg PO BID [facility] Last Admin: 12/29/19 08:44 Dose: 100 mg Admin: 12/28/19 20:06 Dose: 100 mg Famotidine (Pepcid) 20 mg PO BEDTIME [facility] Ketorolac Tromethamine (Toradol) 15 mg IVPUSH Q6H PRN PRN Reason: Pain Last Admin: 12/29/19 02:16 Dose: 15 mg Levothyroxine Sodium (Synthroid) 50 mcg PO BEDTIME [facility] Last Admin: 12/28/19 20:06 Dose: 50 mcg Losartan Potassium (Cozaar) 50 mg PO DAILY [facility] Last Admin: 12/29/19 08:44 Dose: 50 mg Magnesium Hydroxide (Milk Of Magnesia) 30 ml PO BID PRN PRN Reason: Constipation Morphine Sulfate (Morphine) 2 mg IVPUSH Q2H PRN PRN Reason: Breakthrough Pain Multivitamins (Thera) 1 each PO DAILY [facility] Last Admin: 12/29/19 08:44 Dose: 1 each Naloxone HCl (Narcan) 0.1 mg IVPUSH Q5M PRN PRN Reason: Oversedation Ondansetron HCl (Zofran) 4 mg IVPUSH Q6H PRN PRN Reason: Nausea/Vomiting Senna (Senna) 8.6 mg PO BID PRN PRN Reason: Constipation - Assessment Assessment (Free Text/Narrative):: PPD#1 - right ASHLYN - Plan Plan (Free Text/Narrative):: 1. D/C to home today. Outpatient therapy. Eval at ortho clinic next week. 2. 325mg ASA PO BID, frequent mobility, TEDs. 3. ASHLYN precautions. 4. Hgb 11.9. The pt's case was discussed with Dr. Yousif.
[2019-12-29] MEDS ORDERED: Famotidine 20 MG Tab PO SCH (21:00)
--- NOTE | 2019-12-30 14:04 | PCM.DCSUM1 ---
Discharge Summary - Hospital Course Brief History: Jihan is a 79 yo female who underwent right ASHLYN with Dr. Yousif on 12-28-2019. The procedure was completed under spinal anesthesia with sedation. The pt tolerated the procedure well and was admitted to the Medical- Surgical Unit. Medical management was provided by the Hospitalist service. The pt's Hospital course was uneventful. The pt's Hgb on POD#1 was 11.9. On POD#1, 325mg ASA BID was initiated for VTE prophylaxis. SCDs and TEDs were also ordered. A Mepilex dressing was placed at the incision site at the time of surgery and remained clean and dry. The pt participated in P.T. and O.T. and progressed well. She followed the ASHLYN precautions. The pt was allowed to WBAT. On POD#1, the pt was deemed appropriate to discharge to home with her family. Diagnosis: Stroke: No - Discharge Data Discharge Date: 12/29/19 Discharge Disposition: Home, Self-Care 01 Condition: Good - Referral to Home Health Primary Care Physician: Moshe Briones MD - Patient Summary/Data Consults: Consultations 12/28/19 06:36 OT Evaluation and Treatment [CONS] Routine PT Evaluation and Treatment [CONS] Routine 12/28/19 06:41 Consult to Physician [CONS] Routine - Patient Instructions Diet: Usual Diet as Tolerated Activity: Apply Ice, As Tolerated, Elevate Extremity, Full Weight Bearing Activity, Other: Follow the total hip precautions. Driving: Do Not Drive Showering/Bathing: May Shower Wound/Incision Care: Keep Operative Site/Wound Site Clean and Dry, Do NOT Change Dressing Notify Provider of: Fever, Increased Pain, Swelling and Redness, Drainage, Nausea and/or Vomiting Other/Special Instructions: Please get up and moving around EVERY HOUR while awake. This helps to prevent blood clots. Please use your walker and have help with mobility as needed. Take a short walk in your home every hour while awake. Please take 325mg Aspirin TWICE daily. The aspirin is being used for blood clot prevention and not for pain management so please do not miss a dose of the medication. Please do not use the 81mg aspirin daily while using the 325mg aspirin twice daily. When the course of 325mg aspirin is completed, you will resume use of the 81mg aspirin. You could use a medication like Pepcid or Tagamet and a medication like Prilosec or Nexium to protect your stomach while you are using the aspirin. At home, please complete the exercises that you learned during the Hospital stay. Schedule for physical therapy. Follow-up the total hip precautions. Use the pain medication as needed. The medication may cause drowsiness and constipation. Contact your primary care provider for instructions if you are constipated. You may use a stool softener like docusate sodium or Colace 100mg twice daily and/or a laxative like Miralax daily for constipation. Increase your water and fiber intake while you are using the pain medication. Discontinue use of the pain medication as soon as able. Please do not use other medications that may cause drowsiness (other pain medications, anxiety pills, cold medications, sleeping pills, etc) while using the prescription pain medication. Do not use alcohol while using the pain medication. You may use acetaminophen or Tylenol for pain management, however, please ensure you are not using over 4000 mg or 4 grams of acetaminophen per day from all sources. Your pain medication has 325mg of acetaminophen per tablet. At this time, please do not use ibuprofen (Motrin, Advil) or naproxen (Aleve) for pain management as you are using the aspirin. When the aspirin course is completed in 4 to 6 weeks, you could use ibuprofen or naproxen for pain management (if this is allowed by your primary care provider). Wear the LES hose during the day and you may remove these at night. Elevate the limb to decrease swelling. Place ice to the area often. Place a towel between your skin and the blue pad. Use the incentive spirometer often. Take deep breaths throughout the day. Please keep the dressing in place until follow-up. Notify the Clinic if the dressing becomes saturated. Increase your protein intake while you are healing. If you have diabetes, please closely monitor your blood sugars and notify your primary care provider with abnormal values. Elevated blood sugars increases the risk of infection. Call the Clinic with questions or concerns - [phone]. - Discharge Plan *PRESCRIPTION DRUG MONITORING PROGRAM REVIEWED*: No *COPY OF PRESCRIPTION DRUG MONITORING REPORT IN PATIENT JUVE: No Prescriptions/Med Rec: Acetaminophen/HYDROcodone [[place] 325-5 MG] 1 - 2 tab PO Q6H PRN #40 tablet PRN Reason: Pain Acetaminophen/HYDROcodone [[place] 325-5 MG] 1 - 2 tab PO Q6H PRN #40 tablet PRN Reason: Pain Aspirin [Ecotrin EC] 325 mg PO BID #70 tab.ec Aspirin 325 mg PO BID #70 tab Home Medications: Home Meds Cholecalciferol (Vitamin D3) [Vitamin D3] 5,000 unit PO DAILY 12/27/19 [History] Levothyroxine [Synthroid] 50 mcg PO DAILY 12/27/19 [History] Losartan [Cozaar] 50 mg PO DAILY 12/27/19 [History] Multivitamin [Multi-Vitamin Daily] 1 tab PO DAILY 12/27/19 [History] Ubidecarenone [Coq-10] 100 mg PO DAILY 12/27/19 [History] amLODIPine [Norvasc] 5 mg PO DAILY 12/27/19 [History] Acetaminophen/HYDROcodone [[place] 325-5 MG] 1 - 2 tab PO Q6H PRN #40 tablet 12/28 [Rx] Acetaminophen/HYDROcodone [[place] 325-5 MG] 1 - 2 tab PO Q6H PRN #40 tablet 12/28 [Rx] Aspirin 325 mg PO BID #70 tab 12/29/19 [Rx] Aspirin [Ecotrin EC] 325 mg PO BID #70 tab.ec 12/29/19 [Rx] Docusate Sodium [Colace] 100 mg PO BID cap 12/29/19 [Rx] Famotidine [Pepcid] 20 mg PO Q12H tablet 12/29/19 [Rx] Sennosides [Senna] 8.6 mg PO BID PRN tablet 12/29/19 [Rx] bisacodyL [Dulcolax] 5 mg PO DAILY PRN tablet 12/29/19 [Rx] Patient Handouts: Total Hip Replacement, [id number] Referrals: Jenna Raya PA-C [Physician Deburrer] - (please attend the scheduled follow up appointment with Jenna Raya 01/04/2020 at 1215 01/11/2020 at 1215 02/08/2020 at 1215) - Discharge Summary/Plan Comment DC Time >30 min.: No - Patient Data Vitals - Most Recent: Last Vital Signs Temp 98.8 F 12/29/19 12:13 Pulse 82 12/29/19 12:13 Resp 18 12/29/19 12:13 BP 133/75 12/29/19 08:44 Pulse Ox 99 12/29/19 12:13 Weight - Most Recent: 139 lb 1.6 oz Med Orders - Current: Current Medications Discontinued Medications Hydrocodone Bitart/Acetaminophen ([place] 325-5 Mg) 1 - 2 tab PO Q6H PRN PRN Reason: Pain Last Admin: 12/29/19 02:15 Dose: 2 tab Amlodipine Besylate (Norvasc) 5 mg PO DAILY [facility] Last Admin: 12/29/19 08:44 Dose: 5 mg Aspirin (Ecotrin) 325 mg PO BID [facility] Last Admin: 12/29/19 08:44 Dose: 325 mg Bisacodyl (Dulcolax) 5 mg PO DAILY PRN PRN Reason: Constipation Bupivacaine HCl (Sensorcaine-Mpf 0.25%) Confirm Administered Dose 30 ml .ROUTE .STK-MED ONE Stop: 12/28/19 08:14 Last Admin: 12/28/19 11:10 Dose: 30 ml Cefazolin Sodium (Ancef) Confirm Administered Dose 2 gm .ROUTE .STK-MED ONE Stop: 12/28/19 08:14 Last Admin: 12/28/19 11:08 Dose: 2 gm Cefazolin Sodium (Ancef) Confirm Administered Dose 2 gm .ROUTE .STK-MED ONE Stop: 12/28/19 09:25 Cholecalciferol (Vitamin D3) 5,000 unit PO DAILY [facility] Last Admin: 12/29/19 08:44 Dose: 5,000 unit Morphine Sulfate 8 mg/Epinephrine HCl 0.3 mg/Cefuroxime Sodium 750 mg/Ketorolac Tromethamine 30 mg/Sodium Chloride 7.9 ml 0 mg .XX ASDIRECTED PRN PRN Reason: Pain Last Admin: 12/28/19 11:11 Dose: 788.3 mg Docusate Sodium (Colace) 100 mg PO BID [facility] Last Admin: 12/29/19 08:44 Dose: 100 mg Epinephrine HCl (Adrenalin) Confirm Administered Dose 1 mg .ROUTE .STK-MED ONE Stop: 12/28/19 11:34 Famotidine (Pepcid) 20 mg PO Q12H [facility] Last Admin: 12/28/19 20:06 Dose: 20 mg Famotidine (Pepcid) 20 mg PO BEDTIME [facility] Fentanyl (Sublimaze) Confirm Administered Dose 100 mcg .ROUTE .STK-MED ONE Stop: 12/28/19 09:25 Lactated Ringer's (Ringers, Lactated) 1,000 mls @ 125 mls/hr IV ASDIRECTED [facility] Stop: 12/28/19 23:00 Last Admin: 12/28/19 08:34 Dose: 125 mls/hr Cefazolin Sodium/Dextrose 2 gm (/ Premix) 50 mls @ 100 mls/hr IV Q8H [facility] Stop: 12/29/19 09:59 Last Admin: 12/29/19 08:45 Dose: 100 mls/hr Lactated Ringer's (Ringers, Lactated) Confirm Administered Dose 1,000 mls @ as directed .ROUTE .STK-MED ONE Stop: 12/28/19 10:30 Iodine (Iodine 2% Mild Tincture) Confirm Administered Dose 30 ml .ROUTE .STK- MED ONE Stop: 12/28/19 08:14 Last Admin: 12/28/19 11:04 Dose: 18 ml Ketorolac Tromethamine (Toradol) 15 mg IVPUSH Q6H PRN PRN Reason: Pain Last Admin: 12/29/19 02:16 Dose: 15 mg Levothyroxine Sodium (Synthroid) 50 mcg PO BEDTIME [facility] Last Admin: 12/28/19 20:06 Dose: 50 mcg Lidocaine/Sodium Bicarbonate (Buffered Lidocaine 1% In Ns 8.4%) 0.25 ml IDERM ONETIME PRN PRN Reason: Prior to IV Start Stop: 12/28/19 18:00 Losartan Potassium (Cozaar) 50 mg PO DAILY [facility] Last Admin: 12/29/19 08:44 Dose: 50 mg Magnesium Hydroxide (Milk Of Magnesia) 30 ml PO BID PRN PRN Reason: Constipation Midazolam HCl (Versed 1 Mg/Ml) Confirm Administered Dose 2 mg .ROUTE .STK-MED ONE Stop: 12/28/19 09:30 Miscellaneous Medication (Phenylephrine 1 Mg/10 Ml-Ns) Confirm Administered Dose 1 mg IV .STK-MED ONE Stop: 12/28/19 10:07 Miscellaneous Medication (Phenylephrine 1 Mg/10 Ml-Ns) Confirm Administered Dose 1 mg IV .STK-MED ONE Stop: 12/28/19 11:18 Morphine Sulfate (Morphine) 2 mg IVPUSH Q2H PRN PRN Reason: Breakthrough Pain Multivitamins (Thera) 1 each PO DAILY [facility] Last Admin: 12/29/19 08:44 Dose: 1 each Naloxone HCl (Narcan) 0.1 mg IVPUSH Q5M PRN PRN Reason: Oversedation Non-Formulary Medication (Ubidecarenone) 100 mg PO DAILY LUI Ondansetron HCl (Zofran) 4 mg IVPUSH Q6H PRN PRN Reason: Nausea/Vomiting Ondansetron HCl (Zofran) 4 mg IVPUSH ONETIME PRN PRN Reason: Nausea/Vomiting Stop: 12/28/19 13:00 Propofol (Diprivan 20 Ml) Confirm Administered Dose 200 mg .ROUTE .STK-MED ONE Stop: 12/28/19 09:29 Senna (Senna) 8.6 mg PO BID PRN PRN Reason: Constipation Sodium Chloride (Saline Flush) 10 ml FLUSH ASDIRECTED PRN PRN Reason: Keep Vein Open Stop: 12/28/19 18:00 Tranexamic Acid (Cyklokapron) Confirm Administered Dose 1,000 mg .ROUTE .STK- MED ONE Stop: 12/28/19 08:14 Last Admin: 12/28/19 11:12 Dose: 1,000 mg Vancomycin HCl (Vancomycin) Confirm Administered Dose 1 gm .ROUTE .STK-MED ONE Stop: 12/28/19 08:14 Last Admin: 12/28/19 11:12 Dose: 1 gm
--- NOTE | 2020-01-02 12:57 | PCM.OPNOTE ---
- General Post-Op/Procedure Note Date of Surgery/Procedure: 12/28/19 Operative Procedure(s): right total hip arthroplasty Pre Op Diagnosis: right hip osteoarthosis Post-Op Diagnosis: Same Anesthesia Technique: Local, MAC, Spinal Primary Surgeon: Sachin Yousif Anesthesia Provider: Davin Camargo Test Rack Operator: Jenna Raya Test Rack Operator: Nadia Cramer EBL in mLs: 200 Complications: None Condition: Good Free Text/Narrative:: 22.2+0 3 stem 50mm
--- NOTE | 2020-01-02 13:46 | OR ---
DATE OF OPERATION: 12/28/2019 SURGEON: Sachin Yousif MD OPERATIVE PROCEDURE: Right total hip arthroplasty. PREOPERATIVE DIAGNOSIS: Right hip osteoarthrosis. POSTOPERATIVE DIAGNOSIS: Right hip osteoarthrosis. ANESTHESIA: Technique: Local MAC with spinal prep. ANESTHESIA PROVIDER: see records ASSISTANTS: Jenna Raya PA-C, and Nadia Cramer LPN. ESTIMATED BLOOD LOSS: 200 mL. COMPLICATIONS: None. CONDITION: Stable. IMPLANTS: 1. Shanell size 22.2 + 0 MDM components. 2. Shanell size 3 Accolade II femoral stem. 3. Shanell size 50 mm solid Tritanium II acetabular cup. DESCRIPTION OF PROCEDURE: The patient was identified in the preop holding area. Proper site was marked and identified by the surgeon. The patient was taken back to the operating theater where after adequate anesthesia, the patient was placed in the right lateral decubitus position. Axillary roll was placed. Pegs were then placed and well padded. The patient's gluteal fold was parallel to the floor. The right hip was then sterilely prepped and draped in the usual sterile fashion. OR time-out was performed. The patient received 2 g IV Ancef. A standard posterior incision was made over the right hip centered over the greater trochanter. This was taken down to the IT band and gluteal fascia which was incised along the incisional length. Charnley retractor was then placed. Short external rotators were identified and takedown of the short external rotators as well as capsulotomy was performed from the level of the piriformis down to the lesser trochanter. The hip was then dislocated. Neck cut was then completed and found to be adequate. Attention was turned to the acetabulum anterior and posterior acetabular retractors were placed. Circumferential removal of labrum was done at this time as well as the pulvinar. I was able to ream up with a 46 reamer and ream medially just a slight amount and I was able to ream up to a 50 which was found to have adequate purchase and good bony bleeding bed. A 50 mm Tritanium II acetabular cup was then impacted in place in roughly 45 to 50 degrees of abduction and 20 to 30 degrees of anteversion and it was found to have solid fixation. The MDM liner was then impacted into place. At this time, attention was turned to the femur. Starting with a box chisel out laterally, a starter awl was placed down the canal and starting with the 0 broach, I was able to broach up to a size 3 which was found to be rotationally and vertically stable. 22.2 + 0 MDM components were then trialed and found to have adequate denominational of leg lengths and stable throughout range of motion. Trial implants were then removed. The size 3 Accolade II stem was then impacted into place and the MDM components were constructed on the back table and then impacted on the femoral stem. The hip was then relocated. A #5 Ethibond suture was used for closure of the short external rotators and capsule. 1 L dilute Betadine solution was irrigated through the hip along with 3 L pulse lavage irrigation with Ancef. Topical tranexamic acid and vancomycin powder were placed. Periarticular injection was completed. #2 barbed suture was used for closure of the IT band and gluteal fascia, 2-0 Vicryl was used subcutaneously, and Prineo was used for the skin. The patient tolerated the procedure well and sent to PACU in stable condition. OPERATION PERFORMED: MMODAL /[id number] AMBER
== END 2019-12-29 13:45 | disposition home or self-care (01) | DRG 470 ==
LOC: JD.MS 07:51
PROVIDERS: ADMIT Orthopaedic Surgery; ATTEND Orthopaedic Surgery
PROC: 0SR901Z Replacement of Right Hip Joint with Metal Synthetic Substitute, Open Approach (ICD-10-PCS; principal; 2019-12-28)
DX: M16.11 Unilateral primary osteoarthritis, right hip (principal); E03.9 Hypothyroidism, unspecified; E78.5 Hyperlipidemia, unspecified; I10 Essential (primary) hypertension; R01.1 Cardiac murmur, unspecified; R26.89 Other abnormalities of gait and mobility; M85.80 Other specified disorders of bone density and structure, unspecified site; Z88.0 Allergy status to penicillin; Z88.8 Allergy status to other drugs, medicaments and biological substances; Z88.2 Allergy status to sulfonamides; Z79.82 Long term (current) use of aspirin; Z79.890 Hormone replacement therapy; Z79.899 Other long term (current) drug therapy
CPT/HCPCS: 01214; 36415; 73501-26-RT; 73501-RT; 80053; 85027; 86850; 86900; 86901; 87641; 94762; 97110-GP; 97116-GP; 97161-GP; 97165-GO; 97535-GO; A9270-GY; C1776; J0171; J0690; J0697; J1885; J2250; J2270; J2370; J2704; J3010; J3370; J3490; J7120